=== PATIENT | male | born 1965 | race American Indian/Alaskan Native ===

== ENCOUNTER 2016-12-27 17:13 | Emergency (ER) | payer OTHER, SELFPAY ==
[~2016-12-27] VITALS: Ht 177.8 cm; Wt 90.0 kg
[2016-12-27 21:50] VITALS: BP 149/87
== END 2016-12-27 21:52 | disposition home or self-care (01) ==
LOC: ED 21:36
DX: S09.90XA Unspecified injury of head, initial encounter (principal); S01.111A Laceration without foreign body of right eyelid and periocular area, initial encounter; F10.120 Alcohol abuse with intoxication, uncomplicated; W19.XXXA Unspecified fall, initial encounter; Y93.89 Activity, other specified; Y92.89 Other specified places as the place of occurrence of the external cause; Y99.8 Other external cause status
CPT/HCPCS: 70450; 99284

== ENCOUNTER 2017-01-19 22:20 | Emergency (ER) | payer OTHER ==
[~2017-01-19] VITALS: Ht 172.7 cm; Wt 98.2 kg
[2017-01-20 03:22] VITALS: BP 141/87
== END 2017-01-20 03:25 | disposition home or self-care (01) ==
LOC: ED 23:47
DX: F10.129 Alcohol abuse with intoxication, unspecified (principal); F19.10 Other psychoactive substance abuse, uncomplicated; Y90.9 Presence of alcohol in blood, level not specified
CPT/HCPCS: 99283

== ENCOUNTER 2017-02-09 14:19 | Emergency (ER) | payer MEDICAID, OTHER ==
[~2017-02-09] VITALS: Ht 172.7 cm; Wt 110.0 kg
[2017-02-09] MEDS ORDERED: ATEN25TA PO (16:49)
[2017-02-09 17:47] VITALS: BP 147/98
== END 2017-02-09 17:54 | disposition home or self-care (01) ==
LOC: ED 17:48
DX: F10.229 Alcohol dependence with intoxication, unspecified (principal); F19.10 Other psychoactive substance abuse, uncomplicated
CPT/HCPCS: 99283

== ENCOUNTER 2017-02-18 18:54 | Inpatient (IN) | payer OTHER ==
[~2017-02-18] VITALS: Ht 172.7 cm; Wt 96.7 kg
[~2017-02-18 18:54] MED LIST: ATEN25TA PO
[2017-02-18] MEDS ORDERED: SODIUM CHLORIDE 0.9% 1,000 ML IV ONE (19:05)
[2017-02-18] MEDS ORDERED: PLEASE ENTER HEIGHT AND WEIGHT MC SCH (19:30)
[2017-02-18] MEDS ORDERED: SODIUM CHLORIDE 0.9% 1,000ML IVBOLUS ONE (19:30)
[2017-02-18] MEDS ORDERED: SODIUM CHLORIDE FLUSH 10ML SYR IVF ONE (19:30)
[2017-02-18 19:35] LABS: HEMATOCRIT 44.7 % (39.2-51.8); HEMOGLOBIN 15.6 g/dL (13.7-18.0); WHITE BLOOD COUNT 3.4 x10^3/uL (3.4-10)
[2017-02-18 19:51] LABS: ASPARTATE AMINO TRANSFERASE 100 U/L (15-37); BLOOD UREA NITROGEN 7 mg/dL (7-18)
[2017-02-18 19:57] LABS: ACETAMINOPHEN < 2 mcg/mL (10-30)
[2017-02-18] MEDS ORDERED: ONDANSETRON 2MG/ML, 2ML IVPush ONE (20:00)
[2017-02-18] MEDS ORDERED: ONDANSETRON 2MG/ML, 2ML ONE (20:00)
[2017-02-18] MEDS ORDERED: LORazepam 2 MG/ML, 1ML ONE (20:02)
[2017-02-18] MEDS ORDERED: THIAMINE 100MG TABLET PO ONE (20:30)
[2017-02-18] MEDS ORDERED: LORazepam 2 MG/ML, 1ML IVPush PRN (20:30)
[2017-02-18] MEDS ORDERED: THIAMINE 100MG TABLET ONE (21:05)
[2017-02-18] MEDS ORDERED: METOPROLOL 1 MG/ML, 5ML ONE ×3 (21:11→22:38)
[2017-02-18] MEDS: METOPROLOL 1 MG/ML, 5ML IVPush PRN ×3 (21:25→22:40)
[2017-02-18] MEDS ORDERED: SODIUM CHLORIDE FLUSH 10ML SYR IVF PRN (22:30)
[2017-02-18] MEDS ORDERED: ONDANSETRON 2MG/ML, 2ML IV PRN (23:30)
[2017-02-18] MEDS ORDERED: DIPHENHYDRAMINE 50 MG CAPSULE PO PRN (23:30)
[2017-02-18] MEDS ORDERED: POTASSIUM CHLORIDE 20 MEQ, MAGNESIUM SULFATE 1 GM, THIAMINE 100 MG, FOLIC ACID 1 MG, MV... IV SCH (23:30)
[2017-02-18] MEDS ORDERED: ALUMINUM/MAG/SIMETHICONE 30 ML UDC PO PRN (23:30)
[2017-02-18] MEDS ORDERED: LORazepam 2 MG/ML, 1ML IV PRN ×4 (23:30)
[2017-02-19 00:11] LABS: BLOOD UREA NITROGEN 8 mg/dL (7-18)
[2017-02-19 00:13] LABS: HEMATOCRIT 41.2 % (39.2-51.8); HEMOGLOBIN 14.3 g/dL (13.7-18.0); WHITE BLOOD COUNT 4.1 x10^3/uL (3.4-10)
[2017-02-19 00:25] VITALS: BP 161/132
[2017-02-19 00:31] LABS: DAU SCREEN DISCLAIMER
[2017-02-19] MEDS: BACLOFEN 10 MG TABLET PO SCH ×3 (00:45→21:06)
[2017-02-19 02:31] VITALS: BP 136/97
[2017-02-19 05:09] VITALS: BP 151/98
[2017-02-19] MEDS ORDERED: LORazepam 2 MG/ML, 1ML IVPush PRN (07:30)
[2017-02-19 07:48] VITALS: BP 162/91
[2017-02-19] MEDS: CHLORDIAZEPOXIDE 10 MG CAPSULE PO SCH ×3 (10:22→21:06)
[2017-02-19] MEDS: POTASSIUM CHLORIDE 20 MEQ, MAGNESIUM SULFATE 1 GM, THIAMINE 100 MG, FOLIC ACID 1 MG, MV... IV SCH (10:49)
[2017-02-19] MEDS: ATENOLOL 25 MG TABLET PO SCH (13:14)
[2017-02-19 13:16] VITALS: BP 158/99
[2017-02-19] MEDS ORDERED: THIAMINE 100 MG, FOLIC ACID 1 MG, MVI ADULT 10 ML in SODIUM CHLORIDE 0.9% 1,000 ML IV SCH (20:30)
[2017-02-19 20:56] VITALS: BP 127/71
[2017-02-20 03:33] VITALS: BP 143/83
[2017-02-20 07:00] VITALS: BP 157/96
[2017-02-20] MEDS: ATENOLOL 25 MG TABLET PO SCH (09:20)
[2017-02-20] MEDS: POTASSIUM CHLORIDE 20 MEQ, MAGNESIUM SULFATE 1 GM, THIAMINE 100 MG, FOLIC ACID 1 MG, MV... IV SCH (09:20)
[2017-02-20] MEDS: BACLOFEN 10 MG TABLET PO SCH (09:20)
[2017-02-20] MEDS: CHLORDIAZEPOXIDE 10 MG CAPSULE PO SCH ×2 (09:20→16:21)
[2017-02-20 12:39] VITALS: BP 143/89
[2017-02-20] MEDS ORDERED: ENOXAPARIN 40 MG/0.4 ML SQ SCH (18:30)
[2017-02-20 19:48] VITALS: BP 155/82
[2017-02-20] MEDS ORDERED: DIPHENHYDRAMINE 25 MG CAPSULE ONE ×2 (22:01→22:02)
[2017-02-21 02:00] VITALS: BP 148/69
[2017-02-21 05:26] LABS: HEMATOCRIT 41.1 % (39.2-51.8); HEMOGLOBIN 14.2 g/dL (13.7-18.0); WHITE BLOOD COUNT 3.5 x10^3/uL (3.4-10)
[2017-02-21 05:52] LABS: ASPARTATE AMINO TRANSFERASE 128 U/L (15-37); BLOOD UREA NITROGEN 7 mg/dL (7-18)
[2017-02-21 07:27] VITALS: BP 149/95
[2017-02-21] MEDS ORDERED: POTASSIUM CHLORIDE 20 MEQ, MAGNESIUM SULFATE 1 GM, THIAMINE 100 MG, FOLIC ACID 1 MG, MV... IV SCH (08:00)
[2017-02-21] MEDS: ATENOLOL 25 MG TABLET PO SCH (08:57)
[2017-02-21] MEDS ORDERED: MAGNESIUM OXIDE 400 MG TABLET PO SCH (09:00)
[2017-02-21] MEDS ORDERED: MAGNESIUM SULFATE PMX 2GM/50ML 50 ML IV ONE (09:00)
[2017-02-21] MEDS: POTASSIUM CHLORIDE 20 MEQ TAB.ER.PRT PO SCH ×2 (12:11→16:07)
[2017-02-21 13:20] VITALS: BP_SYST 148; BP_SYST 154; BP_DIAS 79; BP_DIAS 97
[2017-02-21] MEDS ORDERED: MAGN400T26 PO (16:10)
== END 2017-02-21 18:00 | disposition home or self-care (01) | DRG 897 ==
LOC: ED 20:29 → EDIP 22:21 → CCU 02-19 00:08 → 4WST 02-19 17:48
PROVIDERS: ADMIT Internal Medicine; ATTEND Internal Medicine
DX: F10.239 Alcohol dependence with withdrawal, unspecified (principal); D69.59 Other secondary thrombocytopenia; R56.9 Unspecified convulsions; K76.0 Fatty (change of) liver, not elsewhere classified; E83.42 Hypomagnesemia; S09.90XA Unspecified injury of head, initial encounter; W18.30XA Fall on same level, unspecified, initial encounter; K70.10 Alcoholic hepatitis without ascites; I10 Essential (primary) hypertension; E87.6 Hypokalemia; I16.0 Hypertensive urgency; Z82.49 Family history of ischemic heart disease and other diseases of the circulatory system; Y93.89 Activity, other specified; Y92.89 Other specified places as the place of occurrence of the external cause; Y99.8 Other external cause status; Z59.0 Homelessness
CPT/HCPCS: 36415; 70450; 71010; 76700; 80048; 80053; 80307; 80329; 81001; 82140; 83036; 83735; 84100; 85025; 87081; 93005; 95819; 96361; 96374; 96375; 96376; J2405; J3411; J3475; J3480; G0479; G0480; J2060; J7030

== ENCOUNTER 2017-04-01 10:08 | Emergency (ER) | payer MEDICAID, OTHER ==
[~2017-04-01] VITALS: Ht 172.7 cm; Wt 75.0 kg
[~2017-04-01 10:08] MED LIST changes: +MAGN400T26 PO
[2017-04-01 11:28] LABS: BLOOD UREA NITROGEN 6 mg/dL (7-18)
[2017-04-01 12:30] VITALS: BP 128/78
== END 2017-04-01 13:26 | disposition left against medical advice (07) ==
LOC: ED 13:22
DX: F10.229 Alcohol dependence with intoxication, unspecified (principal); I10 Essential (primary) hypertension
CPT/HCPCS: 36415; 80048; 80307; 82040; 99284; G0479

== ENCOUNTER 2017-05-27 10:30 | Emergency (ER) | payer MEDICAID ==
[~2017-05-27] VITALS: Ht 172.7 cm; Wt 79.5 kg
[2017-05-27 11:21] VITALS: BP 117/78
== END 2017-05-27 13:31 | disposition home or self-care (01) ==
LOC: ED 12:55
DX: F10.229 Alcohol dependence with intoxication, unspecified (principal); I10 Essential (primary) hypertension
CPT/HCPCS: 99283

== ENCOUNTER 2017-07-02 10:20 | Emergency (ER) | payer MEDICAID ==
[~2017-07-02] VITALS: Ht 182.9 cm; Wt 80.0 kg
[2017-07-02 18:54] VITALS: BP 129/83
== END 2017-07-02 18:57 | disposition home or self-care (01) ==
LOC: ED 11:18
DX: F10.220 Alcohol dependence with intoxication, uncomplicated (principal); I10 Essential (primary) hypertension
CPT/HCPCS: 99283

== ENCOUNTER 2018-04-09 11:45 | Emergency (ER) | payer MEDICAID ==
[~2018-04-09] VITALS: Ht 172.7 cm; Wt 110.0 kg
[2018-04-09 11:56] VITALS: BP 162/100
[2018-04-09] MEDS ORDERED: THIAMINE 100MG TABLET PO ONE (12:30)
[2018-04-09] MEDS ORDERED: THIAMINE 100MG TABLET ONE (15:36)
== END 2018-04-09 18:08 ==
LOC: ED 18:02
DX: F10.220 Alcohol dependence with intoxication, uncomplicated (principal); I10 Essential (primary) hypertension; Z87.891 Personal history of nicotine dependence
CPT/HCPCS: 99283

== ENCOUNTER 2019-07-21 10:45 | Emergency (ER) | payer MEDICAID ==
[~2019-07-21] VITALS: Ht 177.8 cm; Wt 78.0 kg
[2019-07-21 11:13] VITALS: BP 121/84
--- NOTE | 2019-07-21 11:52 | NUR ---
RECEIVED REPORT FROM [facility]. ASSUMING CARE AT THIS TIME. PT SLEEPING ON GURNEY. RESP EVEN AND UNLABORED. MADELYN.
--- NOTE | 2019-07-21 12:28 | NUR ---
PT STOOD UP TO USE URINAL, WITH SEMI-STEADY GAIT. PT GIVEN CRACKERS AND JUICE. PT TO BE MTF, PER .
--- NOTE | 2019-07-21 13:16 | NUR ---
PT AMBULATING IN ROOM GETTING DRESSED, WITH STEADY GAIT. MD GETTING DC PAPERWORK READY.
== END 2019-07-21 19:58 | disposition home or self-care (01) ==
LOC: ED 19:52
DX: F10.120 Alcohol abuse with intoxication, uncomplicated (principal); Y90.0 Blood alcohol level of less than 20 mg/100 ml; I10 Essential (primary) hypertension; Z87.891 Personal history of nicotine dependence
CPT/HCPCS: 71045; 99283

== ENCOUNTER 2019-07-30 13:00 | Inpatient (IN) | payer MEDICAID ==
[~2019-07-30] VITALS: Ht 172.7 cm; Wt 96.6 kg
--- NOTE | 2019-07-30 13:03 | NUR ---
RECIEVED REPORT FROM FRANCISCO JAVIER. PT IN BED, A&O
[2019-07-30] MEDS ORDERED: AZITHROMYCIN 500 MG in SODIUM CHLORIDE 0.9% 250 ML IVPB ONE (13:30)
[2019-07-30] MEDS ORDERED: SODIUM CHLORIDE 0.9%, 500ML IVBOLUS ONE (13:30)
[2019-07-30] MEDS ORDERED: SODIUM CHLORIDE FLUSH 10ML SYR IVF ONE (13:30)
[2019-07-30] MEDS ORDERED: CEFTRIAXONE PMX 1GM/50ML 50 ML IVPB ONE (13:30)
[2019-07-30] MEDS ORDERED: ALBUTEROL/IPRATROPIUM 2.5MG/0.5MG, 3 ML ONE (13:44)
--- NOTE | 2019-07-30 13:50 | NUR ---
Break RN: Pt switched to oxymask 6L. Tolerating well SPO2 93%.
[2019-07-30] MEDS ORDERED: ALBUTEROL/IPRATROPIUM 2.5MG/0.5MG, 3 ML NEB ONE (14:00)
[2019-07-30] MEDS ORDERED: CEFTRIAXONE PMX 1GM/50ML 50 ML ONE (14:01)
[2019-07-30 14:02] LABS: MEAN CORPUSCULAR HEMOGLOBIN 31.9 pg (27.5-34.5); MEAN PLATELET VOLUME 8.6 fL (7.4-10.4); PLATELET COUNT 218 x10^3/uL (130-400); RED CELL DISTRIBUTION WIDTH 14.8 % (9.4-14.8)
--- NOTE | 2019-07-30 14:07 | NUR ---
IV est, NS bolus hung & 1 of 2 abx hung after confirmation of BC x 2 & sputum cx collected. Most likely admit. Pt & sig. other aware of POC.
[2019-07-30 14:13] LABS: ALBUMIN 1.9 g/dL (3.4-5.0); ANION GAP 15 mmol/L (5-15); CALCIUM 7.7 mg/dL (8.5-10.1); CHLORIDE 92 mmol/L (98-107)
[2019-07-30 14:18] LABS: ALANINE AMINOTRANSFERASE 21 U/L (12-78); ALKALINE PHOSPHATASE 59 U/L (45-117); BILIRUBIN,TOTAL 2.1 mg/dL (0.2-1.0); CREATININE 2.34 mg/dL (0.7-1.3); TOTAL PROTEIN 7.2 g/dL (6.4-8.2)
[2019-07-30] MEDS ORDERED: MAGNESIUM SULFATE PMX 2GM/50ML 50 ML IV ONE (14:30)
[2019-07-30] MEDS ORDERED: POTASSIUM CHLORIDE 20 MEQ TAB.ER.PRT PO ONE (14:30)
[2019-07-30] MEDS ORDERED: POTASSIUM CHLORIDE 40 MEQ in SODIUM CHLORIDE 0.9% 500 ML IV ONE (14:30)
[2019-07-30 14:57] LABS: MD YES
[2019-07-30] MEDS ORDERED: ONDANSETRON 2MG/ML, 2ML IVPush PRN (15:00)
--- NOTE | 2019-07-30 15:21 | NUR ---
report given to CRUZITO Baron.
[2019-07-30 15:22] LABS: BAND#(MANUAL) 7.76 x10^3/uL; BANDS%(MANUAL) 40 % (0-7); LYMPH#(MANUAL) 0.19 x10^3/uL (1-3.4); LYMPHS% (MANUAL) 1 % (22-44); METAMYELOCYTES# (MANUAL) 0.39 x10^3/uL (0-0); METAMYELOCYTES% (MANUAL) 2 % (0-1); MONOS#(MANUAL) 0.19 x10^3/uL (0.3-2.7); MONOS% (MANUAL) 1 % (2-9); MYELOCYTES# (MANUAL) 0.19 x10^3/uL (0-0); MYELOCYTES% (MANUAL) 1 % (0-0); REACTIVE LYMPHS # (MANUAL) 0.58 x10^3/uL (0-0); REACTIVE LYMPHS % (MANUAL) 3 % (0-0); SEG#(MANUAL) 10.09 x10^3/uL (1.8-6.8); SEGS% (MANUAL) 52 % (42-75)
[2019-07-30 15:23] LABS: ANISOCYTOSIS 1+; POLYCHROMASIA 1+; TOXIC GRAN 1+
[2019-07-30 15:24] LABS: <PLATELET ESTIMATE> ADEQUATE; <PLT MORPHOLOGY> NORMAL PLT MORPH
[2019-07-30] MEDS ORDERED: THIAMINE 200 MG in SODIUM CHLORIDE 0.9% 50 ML IV ONE (15:30)
[2019-07-30] MEDS ORDERED: PHARMACY MAY ADJ FOR RENAL FX MC PRN (15:30)
[2019-07-30] MEDS ORDERED: SODIUM CHLORIDE 0.9% 1,000ML IVBOLUS ONE (15:30)
[2019-07-30 16:41] VITALS: BP 117/79
[2019-07-30 18:52] LABS: TROPONIN I < 0.015 ng/mL (0.000-0.045)
[2019-07-30 19:14] VITALS: BP 109/73
[2019-07-30] MEDS ORDERED: CEFTRIAXONE PMX 1GM/50ML 50 ML IV ONE (20:30)
[2019-07-30] MEDS: ENOXAPARIN 40 MG/0.4 ML SQ SCH (20:51)
[2019-07-30] MEDS: DOXYCYCLINE 100 MG in DEXTROSE 5% 250 ML IV SCH (21:31)
[2019-07-30] MEDS ORDERED: MAGNESIUM SULFATE PMX 2GM/50ML 50 ML ONE (22:45)
[2019-07-31 00:41] VITALS: BP 121/80
[2019-07-31 01:56] LABS: TROPONIN I < 0.015 ng/mL (0.000-0.045)
[2019-07-31 05:44] LABS: MEAN CORPUSCULAR HGB CONC 34.1 g/dL (33.2-36.2); MEAN CORPUSCULAR VOLUME 93.7 fL (81-97); MEAN PLATELET VOLUME 8.5 fL (7.4-10.4); PLATELET COUNT 212 x10^3/uL (130-400); RED BLOOD COUNT 3.79 x10^6/uL (4.38-5.82); RED CELL DISTRIBUTION WIDTH 14.8 % (9.4-14.8)
[2019-07-31 05:55] LABS: ALBUMIN 1.5 g/dL (3.4-5.0); ANION GAP 8 mmol/L (5-15); CALCIUM 7.2 mg/dL (8.5-10.1); CHLORIDE 105 mmol/L (98-107)
[2019-07-31 06:00] LABS: ALANINE AMINOTRANSFERASE 18 U/L (12-78); BILIRUBIN,TOTAL 0.7 mg/dL (0.2-1.0); CREATININE 0.96 mg/dL (0.7-1.3); TOTAL PROTEIN 6.2 g/dL (6.4-8.2)
[2019-07-31 06:09] LABS: MD YES
[2019-07-31 06:10] LABS: BAND#(MANUAL) 2.26 x10^3/uL; BANDS%(MANUAL) 16 % (0-7); LYMPH#(MANUAL) 0.42 x10^3/uL (1-3.4); LYMPHS% (MANUAL) 3 % (22-44); MONOS#(MANUAL) 0.14 x10^3/uL (0.3-2.7); MONOS% (MANUAL) 1 % (2-9); SEG#(MANUAL) 11.42 x10^3/uL (1.8-6.8); SEGS% (MANUAL) 80 % (42-75)
[2019-07-31 06:11] LABS: <PLATELET ESTIMATE> ADEQUATE; <PLT MORPHOLOGY> NORMAL PLT MORPH; ANISOCYTOSIS 1+; POLYCHROMASIA 1+; TOXIC GRAN 1+
[2019-07-31 06:33] VITALS: BP 122/80
[2019-07-31 06:53] LABS: ALKALINE PHOSPHATASE 58 U/L (45-117)
[2019-07-31] MEDS ORDERED: POTASSIUM CHLORIDE 20 MEQ, MAGNESIUM SULFATE 1 GM, FOLIC ACID 1 MG, THIAMINE 200 MG, MV... IV SCH (08:00)
[2019-07-31] MEDS: ATENOLOL 25 MG TABLET PO SCH (08:20)
[2019-07-31] MEDS: DOXYCYCLINE 100 MG in DEXTROSE 5% 250 ML IV SCH ×2 (08:20→19:57)
[2019-07-31] MEDS ORDERED: POTASSIUM CHLORIDE 20 MEQ TAB.ER.PRT PO ONE (08:30)
[2019-07-31] MEDS ORDERED: POTASSIUM PHOSPHATE 22 MEQ in SODIUM CHLORIDE 0.9% 500 ML IV ONE (09:00)
[2019-07-31] MEDS ORDERED: POTASSIUM CHLORIDE 40 MEQ in SODIUM CHLORIDE 0.9% 500 ML IV ONE (09:00)
[2019-07-31 13:09] VITALS: BP 110/77
[2019-07-31] MEDS ORDERED: CEFTRIAXONE PMX 2GM/50ML 50 ML IV SCH (15:00)
[2019-07-31 19:52] VITALS: BP 116/84
[2019-07-31] MEDS: ENOXAPARIN 40 MG/0.4 ML SQ SCH (19:56)
[2019-07-31] MEDS: GUAIFENESIN ER 600 MG TABLET PO SCH (19:56)
[2019-07-31] MEDS: PIPERACILLIN/TAZO/PMX 3.375GM 50 ML IV SCH (21:58)
[2019-08-01 00:34] VITALS: BP 110/78
[2019-08-01] MEDS: PIPERACILLIN/TAZO/PMX 3.375GM 50 ML IV SCH ×4 (02:56→21:17)
[2019-08-01 06:28] LABS: MEAN CORPUSCULAR HEMOGLOBIN 31.7 pg (27.5-34.5); MEAN CORPUSCULAR HGB CONC 33.4 g/dL (33.2-36.2); MEAN CORPUSCULAR VOLUME 94.8 fL (81-97); MEAN PLATELET VOLUME 9.5 fL (7.4-10.4); PLATELET COUNT 227 x10^3/uL (130-400); RED BLOOD COUNT 3.87 x10^6/uL (4.38-5.82); RED CELL DISTRIBUTION WIDTH 14.9 % (9.4-14.8)
[2019-08-01 06:46] LABS: ANION GAP 8 mmol/L (5-15); CALCIUM 7.5 mg/dL (8.5-10.1); CHLORIDE 106 mmol/L (98-107); CREATININE 0.73 mg/dL (0.7-1.3)
[2019-08-01 06:54] VITALS: BP 124/80
[2019-08-01 06:58] LABS: MD YES
[2019-08-01 07:01] LABS: ANISOCYTOSIS 1+; BAND#(MANUAL) 0.23 x10^3/uL; BANDS%(MANUAL) 2 % (0-7); LYMPHS% (MANUAL) 8 % (22-44); MONOS#(MANUAL) 0.68 x10^3/uL (0.3-2.7); MONOS% (MANUAL) 6 % (2-9); POLYCHROMASIA 1+; SEG#(MANUAL) 9.49 x10^3/uL (1.8-6.8); SEGS% (MANUAL) 84 % (42-75); TOXIC GRAN 1+
[2019-08-01 07:04] LABS: <PLATELET ESTIMATE> ADEQUATE; <PLT MORPHOLOGY> NORMAL PLT MORPH
[2019-08-01] MEDS: DOXYCYCLINE 100 MG in DEXTROSE 5% 250 ML IV SCH ×2 (07:48→19:55)
[2019-08-01] MEDS: GUAIFENESIN ER 600 MG TABLET PO SCH ×2 (09:07→21:16)
[2019-08-01] MEDS: ATENOLOL 25 MG TABLET PO SCH (09:08)
[2019-08-01] MEDS ORDERED: ERGOCALCIFEROL 50,000 UNIT CAPSULE PO SCH (09:30)
[2019-08-01] MEDS ORDERED: POTASSIUM CHLORIDE 20 MEQ TAB.ER.PRT PO ONE (09:30)
[2019-08-01 13:34] VITALS: BP 130/87
[2019-08-01 15:51] LABS: MICROSCOPIC AUTO
[2019-08-01 15:54] LABS: CULTURE INDICATED? NO
[2019-08-01 20:04] VITALS: BP 116/58
[2019-08-01] MEDS: CALCIUM CARBONATE 500 MG TABLET PO SCH (21:16)
[2019-08-01] MEDS: ENOXAPARIN 40 MG/0.4 ML SQ SCH (21:17)
[2019-08-02 01:33] VITALS: BP 130/79
[2019-08-02] MEDS: PIPERACILLIN/TAZO/PMX 3.375GM 50 ML IV SCH ×3 (02:11→16:58)
[2019-08-02 05:39] LABS: ANION GAP 7 mmol/L (5-15); CALCIUM 7.8 mg/dL (8.5-10.1); CHLORIDE 107 mmol/L (98-107); CREATININE 0.71 mg/dL (0.7-1.3)
[2019-08-02 05:42] LABS: BASOPHILS % (AUTO) 0 % (0-1); EOSINOPHILS # (AUTO) 0.07 x10^3/uL (0-0.4); EOSINOPHILS % (AUTO) 1 % (1-7); LYMPHOCYTES # (AUTO) 0.71 x10^3/uL (1-3.4); LYMPHOCYTES % (AUTO) 10 % (22-44); MD NO; MEAN CORPUSCULAR HEMOGLOBIN 31.4 pg (27.5-34.5); MEAN CORPUSCULAR HGB CONC 33.7 g/dL (33.2-36.2); MEAN CORPUSCULAR VOLUME 93.3 fL (81-97); MEAN PLATELET VOLUME 8.3 fL (7.4-10.4); MONOCYTES # (AUTO) 0.66 x10^3/uL (0.2-0.8); MONOCYTES % (AUTO) 9 % (2-9); NEUTROPHILS # (AUTO) 5.69 x10^3/uL (1.8-6.8); NEUTROPHILS % (AUTO) 80 % (42-75); PLATELET COUNT 340 x10^3/uL (130-400); RED BLOOD COUNT 4.05 x10^6/uL (4.38-5.82); RED CELL DISTRIBUTION WIDTH 14.7 % (9.4-14.8)
[2019-08-02] MEDS: DOXYCYCLINE 100 MG in DEXTROSE 5% 250 ML IV SCH ×2 (09:15→20:46)
[2019-08-02 09:16] VITALS: BP 143/95
[2019-08-02] MEDS ORDERED: POTASSIUM CHLORIDE 40 MEQ in SODIUM CHLORIDE 0.9% 500 ML IV ONE (09:30)
[2019-08-02] MEDS ORDERED: MAGNESIUM SULFATE PMX 2GM/50ML 50 ML IV ONE (09:30)
[2019-08-02] MEDS: CALCIUM CARBONATE 500 MG TABLET PO SCH ×2 (10:27→20:45)
[2019-08-02] MEDS: GUAIFENESIN ER 600 MG TABLET PO SCH ×2 (10:27→20:45)
[2019-08-02] MEDS: ATENOLOL 25 MG TABLET PO SCH (10:28)
[2019-08-02 13:41] VITALS: BP 146/90
[2019-08-02 20:00] VITALS: BP 153/95
[2019-08-02] MEDS: ENOXAPARIN 40 MG/0.4 ML SQ SCH (20:45)
[2019-08-02] MEDS: CEFTRIAXONE PMX 2GM/50ML 50 ML IV SCH (22:36)
[2019-08-03 00:43] VITALS: BP 143/84
[2019-08-03] MEDS: DOXYCYCLINE 100 MG in DEXTROSE 5% 250 ML IV SCH ×2 (06:09→17:49)
[2019-08-03 08:00] VITALS: BP 166/100
[2019-08-03] MEDS: GUAIFENESIN ER 600 MG TABLET PO SCH ×2 (08:38→21:16)
[2019-08-03] MEDS: ATENOLOL 25 MG TABLET PO SCH (08:38)
[2019-08-03] MEDS: CALCIUM CARBONATE 500 MG TABLET PO SCH ×2 (08:38→21:16)
[2019-08-03 09:46] LABS: ANION GAP 5 mmol/L (5-15); CALCIUM 7.8 mg/dL (8.5-10.1); CHLORIDE 107 mmol/L (98-107)
[2019-08-03 09:47] LABS: CREATININE 0.73 mg/dL (0.7-1.3)
[2019-08-03 12:59] VITALS: BP 150/96
[2019-08-03 18:44] VITALS: BP 149/90
[2019-08-03] MEDS: ENOXAPARIN 40 MG/0.4 ML SQ SCH (21:16)
[2019-08-03] MEDS: CEFTRIAXONE PMX 2GM/50ML 50 ML IV SCH (21:24)
[2019-08-04 00:25] VITALS: BP 153/89
[2019-08-04] MEDS: DOXYCYCLINE 100 MG in DEXTROSE 5% 250 ML IV SCH ×2 (06:07→17:39)
[2019-08-04 08:27] VITALS: BP 143/93
[2019-08-04] MEDS: ATENOLOL 25 MG TABLET PO SCH (09:23)
[2019-08-04] MEDS: GUAIFENESIN ER 600 MG TABLET PO SCH ×2 (09:23→20:28)
[2019-08-04] MEDS: CALCIUM CARBONATE 500 MG TABLET PO SCH ×2 (09:23→20:28)
[2019-08-04 13:02] VITALS: BP 144/88
[2019-08-04 18:41] VITALS: BP 150/91
[2019-08-04] MEDS: ENOXAPARIN 40 MG/0.4 ML SQ SCH (20:28)
[2019-08-04] MEDS: CEFTRIAXONE PMX 2GM/50ML 50 ML IV SCH (21:49)
[2019-08-05 00:19] VITALS: BP 140/83
[2019-08-05] MEDS: DOXYCYCLINE 100 MG in DEXTROSE 5% 250 ML IV SCH (05:12)
[2019-08-05 07:07] VITALS: BP 147/98
[2019-08-05] MEDS: CALCIUM CARBONATE 500 MG TABLET PO SCH (09:12)
[2019-08-05] MEDS: ATENOLOL 25 MG TABLET PO SCH (09:12)
[2019-08-05] MEDS: GUAIFENESIN ER 600 MG TABLET PO SCH (09:12)
[2019-08-05] MEDS ORDERED: CALC500T11 PO (12:02)
[2019-08-05] MEDS ORDERED: ERGO500017 PO (12:02)
[2019-08-05] MEDS ORDERED: GUAI600T31 PO (12:02)
[2019-08-05] MEDS ORDERED: CEFT2PIG2 IV (12:02)
[2019-08-05 13:23] VITALS: BP 142/85
== END 2019-08-05 14:17 | DRG 871 ==
LOC: ED 14:35 → EDIP 14:39 → 4WST 16:33
PROVIDERS: ADMIT Internal Medicine; ATTEND Internal Medicine
PROC: 02HV33Z Insertion of Infusion Device into Superior Vena Cava, Percutaneous Approach (ICD-10-PCS; principal; 2019-08-05)
PROC: B548ZZA Ultrasonography of Superior Vena Cava, Guidance (ICD-10-PCS; 2019-08-05)
DX: A40.3 Sepsis due to Streptococcus pneumoniae (principal); J18.9 Pneumonia, unspecified organism; J96.01 Acute respiratory failure with hypoxia; N17.0 Acute kidney failure with tubular necrosis; R65.20 Severe sepsis without septic shock; E46 Unspecified protein-calorie malnutrition; E87.2 Acidosis; E83.42 Hypomagnesemia; E86.0 Dehydration; E87.6 Hypokalemia; F17.200 Nicotine dependence, unspecified, uncomplicated; I12.9 Hypertensive chronic kidney disease with stage 1 through stage 4 chronic kidney disease, or unspecified chronic kidney disease; R73.9 Hyperglycemia, unspecified; N18.9 Chronic kidney disease, unspecified; Z59.0 Homelessness; Z79.899 Other long term (current) drug therapy; Z68.32 Body mass index [BMI] 32.0-32.9, adult
CPT/HCPCS: 36415; 84145; 87806; 96374; 99291; J7121; 36573; 71045; 71250; 78582; 80048; 80053; 81001; 82306; 82550; 82607; 83036; 83605; 83735; 84100; 84443; 84484; 85025; 85379; 87040; 87070; 87077; 87181; 87184; 87205; 93005; 94640; G0378; J0456; J0696; J1650; J2543; J3411; J3475; J3480; J7060; A9540; A9558; C1751; G0475; J7030; J7040; J7050

== ENCOUNTER 2019-11-23 09:21 | Emergency (ER) | payer MEDICAID ==
[~2019-11-23] VITALS: Ht 170.2 cm; Wt 81.0 kg
[~2019-11-23 09:21] MED LIST changes: +CALC500T11 PO; +CEFT2PIG2 IV; +ERGO500017 PO; +GUAI600T31 PO
--- NOTE | 2019-11-23 09:37 | NUR ---
Pt arrives via EMS, found on ground intoxicated, no obvious trauma. Pt is lethargic, arousable to touch, speech garbled, difficult to understand. Pt is a poor historian.
--- NOTE | 2019-11-23 10:22 | NUR ---
Pt sleeping, lethargic but arousable. Not answering questions, continues to nod off to sleep. VSWNL
--- NOTE | 2019-11-23 11:47 | NUR ---
Pt sleeping, continues to be srousable to stimulation but lethargic. Provided with blanket
--- NOTE | 2019-11-23 13:45 | NUR ---
Pt sleeping, in no distress
--- NOTE | 2019-11-23 15:01 | NUR ---
Pt more alert, ,speech less garbled. Provided with water and snack.
[2019-11-23 15:02] VITALS: BP 121/89
--- NOTE | 2019-11-23 15:13 | NUR ---
Pt able to ambulate well, answerig questions appropriately.
== END 2019-11-23 15:16 | disposition home or self-care (01) ==
LOC: ED 15:10
DX: F10.229 Alcohol dependence with intoxication, unspecified (principal); R41.82 Altered mental status, unspecified; I10 Essential (primary) hypertension; Y90.0 Blood alcohol level of less than 20 mg/100 ml
CPT/HCPCS: 99283

== ENCOUNTER 2019-11-28 11:46 | Emergency (ER) | payer MEDICAID ==
[~2019-11-28] VITALS: Ht 182.9 cm; Wt 90.0 kg
--- NOTE | 2019-11-28 12:15 | NUR ---
LATE NOTE ENTRY DUE TO PT CARE. Pt arrives to ED by EMS when [facility] found pt down in front of liquor store. Pt smells of ETOH. Pt has left upper forhead abrasion prior to arrival to ED. Pt is alert and responsive to voice. Pt sleeping on gurney connected to NIBP cuff, continous pulse ox monitor, and hospital receptionist. Bedrails up x 2 and call light within reach. Pt denies pain. C-collar in place per EDMD order. Pt awaiting CT at this time. No other needs requested at this time.
--- NOTE | 2019-11-28 12:59 | NUR ---
Pt transported [place] at this time.
--- NOTE | 2019-11-28 13:09 | NUR ---
PT BACK FROM CT, SLEEPING RR EVEN RAPID AT 21/MIN 98%. NO ACUTE DISTRESS.
--- NOTE | 2019-11-28 14:52 | NUR ---
BREAK RN: PT LAYING ON GURNEY, PULSE OX OFF, OXYGEN OFF. RA SATS 80'S%. PLACED ON OXYMASK 8L, SATS INCREASED TO 97%, PT WITH SNORING RESPIRATIONS AT TIMES. PT DROWSY, AROUSES TO NAME. SR PER MONITOR.
--- NOTE | 2019-11-28 15:33 | NUR ---
Pt found with pulse ox removed and attempting to remove blood pressure cuff. Reapplied pulse ox and NIBP cuff. Pt educated to use call light and keep monitors on. Pt oxy mask reapplied. Bedrails up x 2, call light within reach. NADN. No other needs expressed.
[2019-11-28 16:02] VITALS: BP 129/77
--- NOTE | 2019-11-28 16:08 | NUR ---
Patient given discharge instructions and they have confirmed that they understand the instructions. Patient ambulatory with steady gait. Pt left with d/c paperwork and all personal belongings. NADN. No needs expressed.
== END 2019-11-28 16:10 | disposition home or self-care (01) ==
LOC: ED 16:00
DX: S00.81XA Abrasion of other part of head, initial encounter (principal); S09.90XA Unspecified injury of head, initial encounter; F10.129 Alcohol abuse with intoxication, unspecified; I10 Essential (primary) hypertension; X58.XXXA Exposure to other specified factors, initial encounter; Y93.89 Activity, other specified; Y92.89 Other specified places as the place of occurrence of the external cause; Y99.8 Other external cause status; Y90.0 Blood alcohol level of less than 20 mg/100 ml
CPT/HCPCS: 70450; 72125; 99285

== ENCOUNTER 2019-11-29 12:30 | Emergency (ER) | payer MEDICAID ==
[~2019-11-29] VITALS: Ht 172.7 cm; Wt 75.0 kg
--- NOTE | 2019-11-29 12:43 | NUR ---
PT BIB EMS FOR ETOH. PT SLEEPING. AROUSABLE. VSS. NO INJURIES OR TRAUMA. RESP EVEN AND UNLABORED. ADDED 2L O2 WHILE SLEEPING.
--- NOTE | 2019-11-29 13:08 | NUR ---
BREAK RN: PT SLEEPING. VS UPDATED AND WNL. CALL BUTTON IN LAP. SIDE RAILS UP X 2 FOR SAFETY.
--- NOTE | 2019-11-29 14:00 | NUR ---
PT SLEEPING. VSS
[2019-11-29 14:29] VITALS: BP 113/76
--- NOTE | 2019-11-29 15:00 | NUR ---
PT SLEEPING. VSS
--- NOTE | 2019-11-29 16:06 | NUR ---
Patient/Caregiver given discharge instructions and they have confirmed that they understand the instructions. Patient ambulatory with steady gait.
--- NOTE | 2019-11-29 16:06 | NUR ---
PT AMBULATED W STEADY GAIT TO BATHROOM
== END 2019-11-29 16:09 | disposition home or self-care (01) ==
LOC: ED 13:04
DX: F10.120 Alcohol abuse with intoxication, uncomplicated (principal); I10 Essential (primary) hypertension; Y90.0 Blood alcohol level of less than 20 mg/100 ml
CPT/HCPCS: 99283

== ENCOUNTER 2020-03-27 10:46 | Emergency (ER) | payer MEDICAID ==
[~2020-03-27] VITALS: Ht 165.1 cm; Wt 75.0 kg
[2020-03-27 11:04] VITALS: BP 130/90
--- NOTE | 2020-03-27 11:36 | NUR ---
OXYGEN PLACED AT 2LITERS VIA NC ON ARRIVAL TO ED. DURING SLEEP, PT DESAT TO MID 80%. PT HOSTILE AT TIMES, YELLING "WHERE THE FUCK AM I". URINAL AT BS.
--- NOTE | 2020-03-27 12:29 | NUR ---
PT SLEEPING INTERMITTENTLY, OCCASIONALLY AWAKENS AND YELLS OUT "WHERE AM I". CONTINUE TO MONITOR. CALL LIGHT WITHIN REACH.
--- NOTE | 2020-03-27 13:23 | NUR ---
ATTEMPT TO AMBULATE PT. PT HAS UNSTEADY GAIT AND C/O DIZZINESS WHEN STANDING. CONTINUE TO MONITOR AND ASSESS FOR SAFE DISCHARGE. SNACKS AND WATER PROVIDED. PT MORE COOPERATIVE AND POLITE AT THIS TIME.
--- NOTE | 2020-03-27 14:18 | NUR ---
PT NOT IN ROOM, BELONGING BAG AND JACKET GONE FROM ROOM WELL. ED DEPT SEARCHED, NO SIGN OF PT IN ED OR BATHROOMS.
== END 2020-03-27 14:21 | disposition left against medical advice (07) ==
LOC: ED 13:20
DX: F10.220 Alcohol dependence with intoxication, uncomplicated (principal); Y90.9 Presence of alcohol in blood, level not specified
CPT/HCPCS: 99283